=== PATIENT | male | born 2000 | race Caucasian/White ===

== ENCOUNTER 2020-07-08 11:19 | Emergency (ER) | payer OTHER ==
[~2020-07-08] VITALS: Ht 177.8 cm; Wt 104.3 kg
[2020-07-08 11:24] VITALS: BP 133/93
--- NOTE | 2020-07-08 11:32 | NUR ---
PT TAKEN TO LOBBY.
--- NOTE | 2020-07-08 11:46 | NUR ---
PT TAKEN BY [employer] FOR XR.
--- NOTE | 2020-07-08 11:56 | NUR ---
PATIENT AMBULATED WITH STEADY GAIT TO BED 3.
--- NOTE | 2020-07-08 12:10 | NUR ---
20 Y/O MALE C/O LEFT WRIST PAIN 4/10 WITH MOVEMENT DESCRIBES ACHING. PT STATES HE FELL ON WRIST X2 WEEKS AGO. PT DENIES N/V, DENIES FEVER/CHILLS. +PNS. DENIES PMH NKA
[2020-07-08] MEDS ORDERED: IBUP-1842 PO (13:16)
[2020-07-08 13:28] VITALS: BP 133/93
--- NOTE | 2020-07-08 13:28 | NUR ---
Patient discharged with v/s stable. Written and verbal after care instructions given and explained. Patient verbalized understanding. Ambulatory with steady gait. All questions addressed prior to discharge. Advised to follow up with PMD.
== END 2020-07-08 13:28 | disposition home or self-care (01) ==
LOC: MED 11:19
DX: M25.532 Pain in left wrist (principal); Z79.899 Other long term (current) drug therapy
CPT/HCPCS: 73110; 99283

== ENCOUNTER 2020-11-09 20:17 | Emergency (ER) | payer OTHER ==
[~2020-11-09] VITALS: Ht 180.3 cm; Wt 104.3 kg
[~2020-11-09 20:17] MED LIST: IBUP-1842 PO
[2020-11-09 21:20] VITALS: BP 113/86
--- NOTE | 2020-11-09 21:25 | NUR ---
SEEN AND EXAMINED BY ERMD, WITH ORDERS. TO LOBBY A/W BED AMBULATORY
[2020-11-09] MEDS ORDERED: IBUP-2213 PO (21:30)
[2020-11-09] MEDS ORDERED: COROTSOL LEFT EAR (21:30)
--- NOTE | 2020-11-09 22:34 | NUR ---
Patient discharged with v/s stable. Written and verbal after care instructions given and explained. Patient verbalized understanding. Ambulatory with steady gait. All questions addressed prior to discharge. Advised to follow up with PMD. RX OF IBUPROFEN AND CORTISPORIN.
[2020-11-09 22:35] VITALS: BP 113/86
== END 2020-11-09 22:34 | disposition home or self-care (01) ==
LOC: MED 20:17
DX: H60.91 Unspecified otitis externa, right ear (principal)
CPT/HCPCS: 99283